=== PATIENT | male | born 1960 | race Caucasian/White ===

== ENCOUNTER → 2024-11-26 07:12 | Outpatient (REF) | payer OTHER, SELFPAY | LOC: RAD 07:12 | PROVIDERS: ATTENDING PHYSICIAN Internal Medicine Gastroenterology; FAMILY PHYSICIAN Physician Assistant Medical | DX: D69.6 Thrombocytopenia, unspecified (principal) | CPT/HCPCS: 76700 ==

== ENCOUNTER 2024-12-07 06:18 | Day surgery (SDC) | payer OTHER, SELFPAY ==
[2024-12-07 07:29] LABS: Glucose - Point of Care 139 mg/dl (70-99)
== END 2024-12-07 08:57 | disposition home or self-care (01) ==
LOC: GI 06:18
PROVIDERS: ATTENDING PHYSICIAN Internal Medicine Gastroenterology
DX: Z12.11 Encounter for screening for malignant neoplasm of colon (principal); C20 Malignant neoplasm of rectum; D12.3 Benign neoplasm of transverse colon; D12.5 Benign neoplasm of sigmoid colon; K57.30 Diverticulosis of large intestine without perforation or abscess without bleeding; R19.5 Other fecal abnormalities
CPT/HCPCS: 45385; 45380; 82962; 88305; 88342

== ENCOUNTER 2024-12-24 06:20 | Day surgery (SDC) | payer OTHER, SELFPAY ==
[2024-12-24 14:28] LABS: Glucose - Point of Care 112 mg/dl (70-99)
[2024-12-24 14:32] VITALS: BMI 31.2
[2024-12-24 14:38] VITALS: BP 138/89; BMI 31.2
[2024-12-24 15:30] VITALS: BP 122/83
[2024-12-24 15:45] VITALS: BP 122/92
[2024-12-24 16:00] VITALS: BP 131/82
== END 2024-12-24 16:11 | disposition home or self-care (01) ==
LOC: SDS 06:20
PROVIDERS: ATTENDING PHYSICIAN Surgery
DX: Z12.11 Encounter for screening for malignant neoplasm of colon (principal); C20 Malignant neoplasm of rectum; K62.89 Other specified diseases of anus and rectum; Z85.048 Personal history of other malignant neoplasm of rectum, rectosigmoid junction, and anus
CPT/HCPCS: 45335; 82962

== ENCOUNTER → 2024-12-28 13:01 | Outpatient (REF) | payer OTHER, SELFPAY | LOC: RAD 13:01 | PROVIDERS: ATTENDING PHYSICIAN Surgery; FAMILY PHYSICIAN Physician Assistant Medical | DX: C20 Malignant neoplasm of rectum (principal) | CPT/HCPCS: 71260; 74177; Q9967 ==

== ENCOUNTER → 2025-01-02 12:01 | Outpatient (REF) | payer OTHER, SELFPAY | LOC: MRI 12:01 | PROVIDERS: ATTENDING PHYSICIAN Surgery; FAMILY PHYSICIAN Physician Assistant Medical | DX: C20 Malignant neoplasm of rectum (principal) | CPT/HCPCS: 72197; A9575 ==

== ENCOUNTER → 2025-02-02 07:34 | Outpatient (REF) | payer OTHER, SELFPAY | LOC: MRI 3T 07:34 | PROVIDERS: ATTENDING PHYSICIAN Internal Medicine Hematology & Oncology; FAMILY PHYSICIAN Physician Assistant Medical | DX: D69.6 Thrombocytopenia, unspecified (principal); R16.1 Splenomegaly, not elsewhere classified; K76.0 Fatty (change of) liver, not elsewhere classified; C20 Malignant neoplasm of rectum | CPT/HCPCS: 74183; A9575 ==

== ENCOUNTER 2025-02-06 06:05 | Day surgery (SDC) | payer OTHER, SELFPAY ==
--- NOTE | 2025-02-05 10:05 | PTCARENOTE ---
Patient took Jardiance 02/04, Dr Harris notified. No further interventions needed at this time.
[2025-02-06 07:17] VITALS: BMI 31.9
[2025-02-06 07:18] VITALS: BP 143/87
[2025-02-06 07:28] LABS: Glucose - Point of Care 142 mg/dl (70-99)
[2025-02-06] MEDS: TYLENOL 1000 MG PO (07:31)
[2025-02-06] MEDS: CELEBREX 200 MG PO (07:31)
[2025-02-06] MEDS: NORMOSOL-R/PLASMALYTE-A 1000 IV (07:31)
--- NOTE | 2025-02-06 09:35 | W.IMMPOSTOP ---
Addendum entered and electronically signed by Sae Johnston MD 02/06/25 09:48:
updated patient and patient's spouse
Original Note:
Surgical Immed Post Op Note
-
Primary Surgeon: Sae Johnston MD
Assisting Surgeon: None
Pre-op Diagnosis: Rectal cancer
Post-op Diagnosis: Rectal cancer
Procedure Performed: Left subclavian Mediport insertion
Anesthesia Type: Sedation with local
Specimen / Cultures: None
Estimated Blood Loss: 5 mL
Complications: None
Operative Findings: Uneventful placement of Mediport, placement confirmed by fluoroscopy with ease the withdrawal and flush of heparinized saline at the end of the case
[2025-02-06 09:39] VITALS: BP 113/71
[2025-02-06 09:45] VITALS: BP 108/76
--- NOTE | 2025-02-06 09:48 | OR.RPT ---
Operative Report
Operative Report
DATE OF OPERATION: 02/06/2025
SURGEON: Sae Johnston MD
PREOPERATIVE DIAGNOSIS: Stage III rectal cancer
POSTOPERATIVE DIAGNOSIS: Stage III rectal cancer
OPERATION: Left subclavian Mediport insertion
ASSISTANTS:
1. None
ANESTHESIA: MAC w/ local
ESTIMATED BLOOD LOSS: 10 mL
FINDINGS:
1. After placement, the tip of port catheter visualized at level of the cavoatrial junction on fluoroscopy
2. Once sutured in position, port tested with Erwin needle and there was good withdrawal of blood and instillation of heparinized saline without resistance
SPECIMENS: None
DRAINS: None
COMPLICATIONS: No immediate complications.
INDICATIONS: The patient is a 64-year-old male with stage III rectal cancer. Infusional chemotherapy was recommended. Therefore, I recommended port placement. The operation was discussed with the patient in detail including risks and benefits.
Risks discussed included, but are not limited to, bleeding, infection, pneumothorax, post-operative malposition or movement of catheter, need for second surgery, DVT/PE, and anesthetic risks. The patient understood and agreed to proceed. The consent
was signed and placed in the chart.
PROCEDURE: Patient was taken to the operating room and placed on the operating table in supine position. Sequential compression devices were placed bilaterally. Sedation was commenced without complication. Bilateral arms were tucked and the head
was tilted toward the right. The left neck and chest wall area were shaved, prepped and draped in a sterile fashion. A time-out was performed verifying the correct patient, procedure, operative site, positioning, and special equipment.
The patient was placed in Trendelenburg position. Using ultrasound, I visualized the left subclavian vein and artery and confirmed patency and access through the subclavian approach. 10mL of local anesthetic consisting of 1% lidocaine with
epinephrine was used to numb the skin and soft tissue near the angle of the left clavicle. Using bony landmarks as a guide, I passed the needle with 10mL syringe under the left clavicle in the direction of the sternal notch while simultaneously
aspirating. On the second pass, good venous return was noted indicating that I had accessed the left subclavian vein. Under fluoroscopic guidance, a guidewire was passed through the needle into the patient down to the superior vena cava. This went
smoothly.
The needle was removed over the guidewire and a skin opening was enlarged with an 11 blade scalpel. Next, I advanced the dilator and peel-away sheath together over the guidewire into the patient. This went smoothly as well. Next, the guidewire and
inner dilator were removed leaving the outer sheath in place. I advanced the white tubing through the outer sheath into the patient under fluoroscopic guidance to the superior vena cava near the right atrium. Next, the outer sheath was peeled away
while maintaining the white tubing in place. The location of the catheter tip was confirmed on fluoroscopy.
I injected more 1% lidocaine with epinephrine into the planned subcutaneous port pocket. Using a 15 blade scalpel, I made a 3cm incision over the chest wall. A subcutaneous pocket was created inferiorly to the incision with a combination of Bovie
electrocautery and blunt dissection. There was good hemostasis. The white tubing was connected to the tunneling device and brought through a newly created tunnel to the pocket area, taking care to avoid kinking of the tube. I confirmed with
fluoroscopy that the tip was still at the cavoatrial junction after this manipulation. The white tubing was trimmed, connected to the the port reservoir and secured with the locking mechanism. The port reservoir was accessed with good venous return
and flushed with heparinized saline. One last round of fluoroscopy was performed. The tip of the white tubing was at the level of the cavoatrial junction and there was no kink in the tubing.
The reservoir was secured to the chest wall with two 3-0 Prolene stitches. The port was accessed once more with the Erwin needle and heparinized saline. The port withdrew promptly and flushed easily. The subcutaneous layer was closed with deep
dermal interrupted 3-0 Vicryl and the skin was closed with a running subcuticular 4-0 Vicryl. The remaining 1% lidocaine was injected around the subcutaneous pocket, port incision and stab incision. Total amount of local used was 20mL. Dermabond
was used to dress the port incision and stab incision.
At this point, the procedure was complete. All sponge, needle and instrument counts were correct. The patient tolerated the procedure well and was transferred to the recovery room in stable condition. A portable chest x-ray was ordered in recovery
to confirm port position and rule-out pneumothorax.
DICTATED BY: Sae Johnston MD
[2025-02-06 10:00] VITALS: BP 111/70
[2025-02-06 10:15] VITALS: BP 109/69
[2025-02-06 10:30] VITALS: BP 109/73
== END 2025-02-06 11:26 | disposition home or self-care (01) ==
LOC: SDS 06:05
PROVIDERS: ATTENDING PHYSICIAN Surgery
DX: C20 Malignant neoplasm of rectum (principal)
CPT/HCPCS: 36561; 71045; 76000; 82962; C1788